=== PATIENT | male | born 1985 | race Caucasian/White ===

== ENCOUNTER → 2018-07-27 | Outpatient (CLI) | payer OTHER ==
--- NOTE | 2018-07-27 18:20 | XR ---
EXAMINATION TYPE: XR ankle complete RT DATE OF EXAM: 07/27/2018 COMPARISON: NONE HISTORY: Pain TECHNIQUE: 3 views FINDINGS: Ankle mortise is anatomic. I see no fracture nor dislocation. Joint spaces are normal. IMPRESSION: Negative right ankle exam.
--- NOTE | 2018-07-27 18:21 | XR ---
EXAMINATION TYPE: XR foot complete RT DATE OF EXAM: 07/27/2018 COMPARISON: NONE HISTORY: Pain TECHNIQUE: 3 views FINDINGS: Metatarsals are intact. I see no fracture nor dislocation. There are no erosions. Joint spa more[place] appear normal. IMPRESSION: Negative right foot exam.
== END ==
LOC: RADXRMAIN 17:26
PROVIDERS: ATTEND Emergency Medicine
DX: S93.401A Sprain of unspecified ligament of right ankle, initial encounter (principal); S93.601A Unspecified sprain of right foot, initial encounter

== ENCOUNTER → 2018-08-08 | Outpatient (CLI) | payer OTHER ==
--- NOTE | 2018-08-08 15:04 | XR ---
EXAMINATION TYPE: XR ankle complete RT, XR foot complete RT DATE OF EXAM: 08/08/2018 CLINICAL HISTORY: Right foot and ankle pain, persistent. Follow-up exam. TECHNIQUE: Frontal, lateral and oblique images of the right ankle and foot are obtained. COMPARISON: 07/27/2018 FINDINGS: There is no acute fracture/dislocation evident in the right ankle nor foot. The ankle mor tise appears within normal limits. The overlying soft tissue appears unremarkable. Osseous mineraliz ation is within normal limits. No focal soft tissue swelling. No radiopaque foreign body. No perioste al reaction or cortical erosion. IMPRESSION: There is no acute fracture or dislocation in the right ankle or foot. Given the persiste nt pain MRI could be performed to evaluate for ligamentous and/or tendinous injury.
== END ==
LOC: RADXRMAIN 13:56
PROVIDERS: ATTEND Emergency Medicine
DX: S93.401D Sprain of unspecified ligament of right ankle, subsequent encounter (principal); S93.601D Unspecified sprain of right foot, subsequent encounter

== ENCOUNTER 2022-03-22 23:24 | Emergency (ER) | payer BC ==
[2022-03-22 23:55] VITALS: RESP 18; TEMP 98
--- NOTE | 2022-03-23 01:30 | ED ---
GI Bleed HPI - General Chief complaint: GI Bleed Stated complaint: Blood in stool, Abdominal Pain Time Seen by Provider: 03/23/22 00:31 Source: patient, RN notes reviewed, old records reviewed Mode of arrival: ambulatory Limitations: no limitations - History of Present Illness Initial comments: This is a 36-year-old male DF for evaluation patient Dese for evaluation of bright red blood per rectum with history of hemorrhoids. Patient has no abdominal pain. No nausea no vomiting. Symptoms occurred prior to arrival 2. But has not happened a few hours. Patient is on blood thinners no prior history of colonoscopy and no prior history of GI bleed MD complaint: blood streaked stool, gross hematochezia -: hour(s) Radiation: none Severity scale (1-10): 2 Quality: painless Consistency: intermittent Improves with: none Worsens with: none Context: history of GI bleed Associated Symptoms: denies other symptoms Treatments Prior to Arrival: none - Related Data Allergies Allergy/AdvReac Type Severity Reaction Status Date / Time No Known Allergies Allergy Verified 03/22/22 23:55 Review of Systems ROS Statement: Those systems with pertinent positive or pertinent negative responses have been documented in the HPI. ROS Other: All systems not noted in ROS Statement are negative. Past Medical History Past Medical History: Hypertension Additional Past Medical History / Comment(s): hemorrhoid History of Any Multi-Drug Resistant Organisms: None Reported Past Surgical History: No Surgical Hx Reported Past Psychological History: No Psychological Hx Reported Smoking Status: Current some day smoker Past Alcohol Use History: Occasional Past Drug Use History: None Reported General Exam Limitations: no limitations General appearance: alert, in no apparent distress Head exam: Present: atraumatic, normocephalic, normal inspection Eye exam: Present: normal appearance, PERRL, EOMI. Absent: scleral icterus, conjunctival injection, periorbital swelling ENT exam: Present: normal exam, mucous membranes moist Neck exam: Present: normal inspection. Absent: tenderness, meningismus, lymphadenopathy Respiratory exam: Present: normal lung sounds bilaterally. Absent: respiratory distress, wheezes, rales, rhonchi, stridor Cardiovascular Exam: Present: regular rate, normal rhythm, normal heart sounds. Absent: systolic murmur, diastolic murmur, rubs, gallop, clicks GI/Abdominal exam: Present: soft, normal bowel sounds. Absent: distended, tenderness, guarding, rebound, rigid Extremities exam: Present: normal inspection, full ROM, normal capillary refill. Absent: tenderness, pedal edema, joint swelling, calf tenderness Back exam: Present: normal inspection Neurological exam: Present: alert, oriented X3, CN II-XII intact Psychiatric exam: Present: normal affect, normal mood Skin exam: Present: warm, dry, intact, normal color. Absent: rash Course Vital Signs 03/22/22 03/23/22 23:51 02:13 Temperature 98.0 F Pulse Rate 90 72 Respiratory 18 Rate Blood Pressure 149/96 146/72 O2 Sat by Pulse 97 98 Oximetry - Reevaluation(s) Reevaluation #1: 03/23/22 01:25 Medical record is reviewed Reevaluation #2: 03/23/22 01:25 Patient informed of results and questions answered Reevaluation #3: 03/23/22 01:25 Patient is no significant complaints, no recurrent symptoms Medical Decision Making - Medical Decision Making 36 male to the emergency department for evaluation. Patient presents today for evaluation regards to bright red blood per rectum. 2. Mild. No current bleeding history of hemorrhoids he will is stable no bleeding here in the ER patient can be discharged home - Lab Data Result diagrams: 03/23/22 01:00 03/23/22 01:00 Lab Results 03/23/22 03/23/22 Range/Units 01:00 01:00 WBC 10.5 (3.8-10.6) k/uL RBC 5.44 (4.30-5.90) m/uL Hgb 15.7 (13.0-17.5) gm/dL Hct 49.4 (39.0-53.0) % MCV 90.9 (80.0-100.0) fL MCH 28.9 (25.0-35.0) pg MCHC 31.8 (31.0-37.0) g/dL RDW 13.1 (11.5-15.5) % Plt Count 366 (150-450) k/uL MPV 8.2 Neutrophils % 58 % Lymphocytes % 32 % Monocytes % 6 % Eosinophils % 3 % Basophils % 1 % Neutrophils # 6.0 (1.3-7.7) k/uL Lymphocytes # 3.3 (1.0-4.8) k/uL Monocytes # 0.6 (0-1.0) k/uL Eosinophils # 0.3 (0-0.7) k/uL Basophils # 0.1 (0-0.2) k/uL Sodium 138 (137-145) mmol/L Potassium 4.2 (3.5-5.1) mmol/L Chloride 101 (98-107) mmol/L Carbon Dioxide 27 (22-30) mmol/L Anion Gap 10 mmol/L BUN 15 (9-20) mg/dL Creatinine 0.82 (0.66-1.25) mg/dL Est GFR (CKD-EPI)AfAm >90 (>60 ml/min/1.73 sqM) Est GFR (CKD-EPI)NonAf >90 (>60 ml/min/1.73 sqM) Glucose 88 (74-99) mg/dL Calcium 9.8 (8.4-10.2) mg/dL Magnesium 2.2 (1.6-2.3) mg/dL Total Bilirubin 0.5 (0.2-1.3) mg/dL AST 47 (17-59) U/L ALT 71 H (4-49) U/L Alkaline Phosphatase 63 (38-126) U/L Total Protein 8.1 (6.3-8.2) g/dL Albumin 5.2 H (3.5-5.0) g/dL Lipase 76 (23-300) U/L Disposition Clinical Impression: Lower gastrointestinal hemorrhage Disposition: HOME SELF-CARE Condition: Good Instructions (If sedation given, give patient instructions): Gastrointestinal Bleeding (ED) Is patient prescribed a controlled substance at d/c from ED?: No Referrals: Paige Batista MD [STAFF PHYSICIAN] - 1-2 days Time of Disposition: 02:00
[2022-03-23 01:46] LABS: Basophils # (A) 0.1 k/uL (0-0.2); Basophils % (A) 1 %; Eosinophils # (A) 0.3 k/uL (0-0.7); Eosinophils % (A) 3 %; HCT 49.4 % (39.0-53.0); HGB 15.7 gm/dL (13.0-17.5); Lymphocytes # (A) 3.3 k/uL (1.0-4.8); Lymphocytes % (A) 32 %; MCH 28.9 pg (25.0-35.0); MCHC 31.8 g/dL (31.0-37.0); MCV 90.9 fL (80.0-100.0); Mean Platelet Volume 8.2; Monocytes # (A) 0.6 k/uL (0-1.0); Monocytes % (A) 6 %; Neutrophils % (A) 58 %; Platelet Count 366 k/uL (150-450); RBC 5.44 m/uL (4.30-5.90); RDW 13.1 % (11.5-15.5); WBC 10.5 k/uL (3.8-10.6)
[2022-03-23 01:52] LABS: ALT 71 U/L (4-49); AST 47 U/L (17-59); African American GFR (CKD) >90 (>60 ml/min/1.73 sqM); Albumin 5.2 g/dL (3.5-5.0); Alkaline Phosphatase 63 U/L (38-126); Anion Gap 10 mmol/L; Blood Urea Nitrogen 15 mg/dL (9-20); Calcium 9.8 mg/dL (8.4-10.2); Carbon Dioxide 27 mmol/L (22-30); Chloride 101 mmol/L (98-107); Glucose 88 mg/dL (74-99); Lipase 76 U/L (23-300); Magnesium 2.2 mg/dL (1.6-2.3); Non-African American GFR(CKD) >90 (>60 ml/min/1.73 sqM); Potassium 4.2 mmol/L (3.5-5.1); Sodium 138 mmol/L (137-145); Total Bilirubin 0.5 mg/dL (0.2-1.3); Total Protein 8.1 g/dL (6.3-8.2)
[2022-03-23 02:15] VITALS: BP 146/72; PULSE 72
== END 2022-03-23 02:14 | disposition home or self-care (01) ==
LOC: EC 23:24
DX: K92.1 Melena (principal); I10 Essential (primary) hypertension; F17.200 Nicotine dependence, unspecified, uncomplicated
CPT/HCPCS: 36415; 80053; 83690; 83735; 85025; 99284

== ENCOUNTER → 2023-11-29 | Outpatient (CLI) | payer BC ==
--- NOTE | 2023-11-30 09:29 | XR ---
EXAMINATION TYPE: XR ankle limited LT DATE OF EXAM: 11/29/2023 2:01 PM CLINICAL INDICATION:Male, 38 years old with history of PAIN; PHH. Patient reports pain no known inju ry. COMPARISON: None TECHNIQUE: The left foot and left ankle are imaged in frontal and lateral projections. 4 images total . FINDINGS: Exam limited with only 2 views obtained. Osseous mineralization appears appropriate. Mild cortical irregularities of the distal 2-4 metatarsal s in the region of the head/neck junctions, may be sequela of nonacute fracture without significant d isplacement seen. No definite acute fracture lucency or dislocation. Mild degenerative changes. Align ment at the tarsometatarsal joints appears preserved. Minimal plantar and dorsal calcaneal spurring. No evidence of ankle fracture or dislocation. Ankle mortise is preserved. Talus appears intact. No si gnificant joint effusion is seen. Unremarkable soft tissues. No radiopaque foreign body is seen. IMPRESSION: Left ankle and foot: 1. No evidence of acute fracture or dislocation of the ankle. 2. Mild cortical irregularities of the distal 2-4 metatarsals in the region of the head/neck junctio ns, may be sequela of nonacute fracture without significant displacement seen.
--- NOTE | 2023-11-30 09:30 | XR ---
EXAMINATION TYPE: XR foot limited LT DATE OF EXAM: 11/29/2023 2:01 PM CLINICAL INDICATION:Male, 38 years old with history of PAIN; PHH COMPARISON: None. TECHNIQUE: The left foot and left ankle are imaged in frontal and lateral projections. 4 images total . FINDINGS: Exam limited with only 2 views obtained. Osseous mineralization appears appropriate. Mild cortical irregularities of the distal 2-4 metatarsal s in the region of the head/neck junctions, may be sequela of nonacute fracture without significant d isplacement seen. No definite acute fracture lucency or dislocation. Mild degenerative changes. Align ment at the tarsometatarsal joints appears preserved. Minimal plantar and dorsal calcaneal spurring. No evidence of ankle fracture or dislocation. Ankle mortise is preserved. Talus appears intact. No si gnificant joint effusion is seen. Unremarkable soft tissues. No radiopaque foreign body is seen. IMPRESSION: Left ankle and foot: 1. No evidence of acute fracture or dislocation of the ankle. 2. Mild cortical irregularities of the distal 2-4 metatarsals in the region of the head/neck junctio ns, may be sequela of nonacute fracture without significant displacement seen.
--- NOTE | 2023-11-30 09:33 | XR ---
EXAMINATION TYPE: XR lumbosacral spine min 4V DATE OF EXAM: 11/29/2023 2:01 PM CLINICAL INDICATION:Male, 38 years old with history of PAIN; PHH COMPARISON: None TECHNIQUE: XR lumbosacral spine 5 views- Frontal, bilateral oblique, lateral and coned down L5-S1 lat eral views of the lumbar spine. FINDINGS: There are 5 non rib bearing lumbar-type vertebral bodies. L5 may be partially sacralized. Mineralizat ion appears within normal limits. No osseous destructive process seen. Vertebral body heights and dis c spacing are preserved. Pedicles look to be intact. There is normal alignment of the lumbar vertebra l bodies. No significant degenerative changes throughout the spine. Soft tissues are unremarkable. If clinical concern persists, CT or MRI may be obtained as indicated for further evaluation. IMPRESSION: No radiographic evidence of an acute osseous abnormality.
== END | disposition home or self-care (01) ==
LOC: RADXRMAIN 13:26
PROVIDERS: ATTEND Family Medicine
DX: M25.572 Pain in left ankle and joints of left foot (principal)
CPT/HCPCS: 72110

== ENCOUNTER → 2024-01-26 | Outpatient (CLI) | payer BC ==
[2024-01-26 11:25] VITALS: BP 151/84; PULSE 78; RESP 16; TEMP 98.3
--- NOTE | 2024-01-26 11:55 | P.SLEEP ---
History of Present Illness DATE: 01/26/2024 CONSULTATION/NEW PATIENT EVALUATION HISTORY OF PRESENT ILLNESS/SLEEP-WAKE EVALUATION: 38-year-old gentleman had b een evaluated in the sleep center for possible obstructive sleep apnea hypopnea syndrome. SLEEP SCHEDULE: Usually sleep schedule from 8:45 AM to 2:45 PM on weekdays and from 11 PM to 7:45 AM on weekend. 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 FALLING ASLEEP: No problems with falling asleep. DURING SLEEP: Patient has loud snoring, witnessed episodes of stop breathing during the sleep. Patient wakes up from sleep 3 times with nocturia, episodes of gasping for air, restless leg symptoms, sweating, choking. Positive history of sleep talking and possibly sleepwalking. No history of hypnogogical halluc inations, sleep paralysis, or cataplexy. DURING THE DAY/WAKE STATE: In the morning patient wake up tired, falling asleep during the day, has problems with memory concentration and irritability.. Epw orth sleepiness scale is an extremely high range of 17. Patient may take 1 nap during the day. He drinks up to 6 cups of caffeinated beverages during the day. PAST MEDICAL HISTORY: Hypertension. PAST SURGICAL HISTORY: None. MEDICATIONS: Amlodipine 2.5 mg once a day. SOCIAL HISTORY: Negative for smoking, alcohol consumption occasional. FAMILY HISTORY: Heart problems, hypertension, snoring, pneumonia. REVIEW OF SYSTEMS: Snoring, multiple awakenings from sleep, significant sleepiness. No fevers. No double vision. No recent chest pain. No shortness of breath. No abdominal pain. No bleeding episodes. No blood in urine. No seizure episodes. PHYSICAL EXAMINATION: GENERAL: A pleasant patient without any distress. VITAL SIGNS: Please see below, weight 275 pounds, BMI 37.2. HEENT: PERRLA, EOMI. Evaluation of oropharynx showed tongue protrudes midline, low position of soft palate Mallampati 3. NECK: Supple. No JVD. Thyroid is not palpable. 18 inches in circumference. LUNGS: Clear to percussion and to auscultation. Good air exchange. No wheezing or rhonchi. HEART: S1, S2 regular. No murmurs, gallops or rubs. ABDOMEN: Soft and nontender. Bowel sounds are present. No organomegaly appreciated. EXTREMITIES: No clubbing or cyanosis. ROOF BOLTER: Awake, alert, and oriented x3. Cranial nerves 2 to 7 intact. There is no fasciculation or atrophy noted. No focal deficits observed. ASSESSMENT: 1. Loud snoring, witnessed episodes of stop breathing during the sleep, low position of soft palate Mallampati 3, wide neck 18 inches in circumference, sleepiness with high level of her Cuthbert Sleepiness Scale. Obstructive sleep apnea hypopnea syndrome. 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 3. Sleepiness with very high Cuthbert Sleepiness Scale of 17, dictate necessity to include hypersomnia differential diagnosis. 4. Obesity BMI 37.2. 5 hypertension. PLAN: 1. Home sleep apnea test for evaluation of patient's breathing during sleep. 2. Following plan after reading sleep study. 3. Preferable position during sleep on the side. 4. No driving if patient feels any sleepiness. Patient is aware of civil and criminal liability for unsafe driving. 5. Sleep hygiene with regular sleep time for at least 7.5-8 hours. 6. Watching and losing weight. Thank you very much for referring this patient for consultation. Sincerely, Papi Montiel MD, PhD, FAASM. Diplomat of [place] [employer], Sleep Medicine Board by [place] [employer] [place] [employer] Director Organizational of [facility] [place] Past Medical History Past Medical History: Hypertension Additional Past Medical History / Comment(s): hemorrhoid History of Any Multi-Drug Resistant Organisms: None Reported Past Surgical History: No Surgical Hx Reported Past Anesthesia/Blood Transfusion Reactions: No Reported Reaction Past Psychological History: No Psychological Hx Reported Smoking Status: Current some day smoker Past Alcohol Use History: Occasional Past Drug Use History: None Reported - Past Family History Mother Family Medical History: Coronary Artery Disease (CAD) Father Family Medical History: Liver Disease Additional Family Medical History / Comment(s): from cirrosis Medications and Allergies Home Medications Medication Instructions Recorded Confirmed Type amLODIPine [Norvasc] 2.5 mg PO DAILY 01/26/24 01/26/24 History Allergies Allergy/AdvReac Type Severity Reaction Status Date / Time No Known Allergies Allergy Verified 03/22/22 23:55 Physical Exam Vitals: Vital Signs Temp Pulse Resp BP Pulse Ox 01/26/24 11:00 98.3 F 78 16 151/84 96 Intake and Output 01/25/24 01/26/24 01/26/24 22:59 06:59 14:59 Other: Weight 124.738 kg Sleep Note - Sleep Data ESS Total: 17 - Sleep Note Sleep Note: Temperature: 98.3 F Pulse Rate: 78 Respiratory Rate: 16 Blood Pressure: 151/84 SpO2: 96 Height: 6 ft Weight: 124.738 kg BMI: Neck Circumference: 18
== END ==
LOC: 3 N SLEEP 10:31
PROVIDERS: ATTEND Internal Medicine
DX: G47.33 Obstructive sleep apnea (adult) (pediatric) (principal); G47.10 Hypersomnia, unspecified; E66.9 Obesity, unspecified; I10 Essential (primary) hypertension; F17.200 Nicotine dependence, unspecified, uncomplicated; Z68.37 Body mass index [BMI] 37.0-37.9, adult; Z79.899 Other long term (current) drug therapy
CPT/HCPCS: 99211

== ENCOUNTER → 2024-02-10 | Outpatient (CLI) | payer BC ==
--- NOTE | 2024-02-16 13:23 | P.PCN ---
Description of Procedure: CLINICAL: A home sleep apnea test has been done for confirmation of possible obstructive sleep apnea-hypopnea syndrome. DESCRIPTION OF PROCEDURE: RESULTS: Recording time was 7 hours . 31 minutes. Evaluation time was 7 hours 19 minutes. Evaluation time is sufficient for making conclusion about results of the test. Raw data of sleep recording has been reviewed and is adequate. Respiratory channel showed 38 apneas and 182 hypopneas. Apnea-hypopnea index was 30.0 per hour. Pulse rate in the range between minimum 40, maximum 115, average 61 by computer calculation. Lowest desaturation was 83%. IMPRESSION: 1. Severe Obstructive Sleep Apnea Hypopnea Syndrome. Please see other impressions from consultation. PLAN: 1. The patient will be started on auto-PAP treatment for correction of respiratory abnormallities during sleep. 2. I will see patient for follow up visit to discuss results of the test, evaluate clinical response on treatment with PAP therapy and make any necessary adjustments related to mask fitting, pressure, and humidification. 3. Watching and losing weight. 4. Sleep hygiene with regular time in bed for at least 8 hours. 5. No driving if feeling any sleepiness. Thank you very much for allowing me to participate in the management of your patient. Sincerely, Papi Montiel MD, PhD, FAASM Diplomat of [place] [employer] Sleep Medicine Board of [place] [employer] Healthcare Liaison of [facility] [place]
== END ==
LOC: 3 N SLEEP 10:42
PROVIDERS: ATTEND Internal Medicine
DX: G47.33 Obstructive sleep apnea (adult) (pediatric) (principal)

== ENCOUNTER → 2024-06-28 | Outpatient (CLI) | payer BC ==
[2024-06-28 15:34] VITALS: BP 138/82; PULSE 90; RESP 16; TEMP 97.6
--- NOTE | 2024-06-28 16:11 | P.PROGSL ---
Subjective DATE: [] FOLLOW UP VISIT. Patient with obstructive sleep apnea hypopnea syndrome return to sleep center for follow-up visit. Recently patient had sleep study which documented obstructive sleep apnea hypopnea syndrome. I explained results of the sleep study to patient in details. Patient was initiated on PAP therapy and today is first visit after treatment was started. Patient was able to use PAP equipment every night for the whole night. Patient feels better during the sleep and during the day after starting treatment with CPAP. The patient does not have significant problems with the mask, PAP pressure and humidification. [place] sleepiness scale is 8, which is in normal range. I checked information from PAP unit. PAP unit pressure 6-18, average 12.5 cm H2O. Usage is 100% and 70% for more then 4 hours, average 5 hours per night. Leak is increased to 31.0 l/m. Apnea Hypopnea Index is 2.1, which is normal. MEDICATIONS: Please see below During physical exam: GENERAL: A pleasant patient without any distress. VITAL SIGNS: Please see below, weight 265 pounds. HEENT: PERRLA, EOMI.low position of soft palate, Mallapati 3 . NECK: Supple. No JVD. LUNGS: Clear to percussion and to auscultation. Good air exchange. No wheezing or rhonchi. HEART: S1, S2 regular. ABDOMEN: Soft and nontender. Obese EXTREMITIES: No clubbing or cyanosis. VENEER PRESS OPERATOR: Awake, alert, and oriented x3. No focal deficit. Impressions: 1. Obstructive sleep apnea-hypopnea syndrome. Patient demonstrated great compliance with treatment, benefiting from treatment. 2. Obesity. 3. Hypertension. 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 Plan: 1. Continue using PAP equipment every night for the whole night. 2. To change air filter at least 1-2 times per month. 3. PAP unit should stay lower then position of the head. 4. Advised patient to remove all remaining water from humidifier canister daily and make it dry after each usage. Refill canister with fresh distilled water before each usage. 5. Sleep hygiene with regular time in bed for at least 8 hours. 6. Precautions related to driving. No driving if feel any sleepiness. 7. I will maintain prescription for PAP supplies including mask, tube, filters. 8. Follow up visit in 6 months or earlier if patient has any problems. 9. Watching and losing weight. Thank you very much for allowing me to participate in the management of your patient. Papi Montiel MD, PhD, FAASM. Diplomat of [place] [employer], Sleep Medicine Board by [place] [employer] Veterinary Pharmacologist of [facility] [place] Objective - Vital Signs Vital Signs: Vital Signs Temp 97.6 F 06/28/24 15:32 Pulse 90 06/28/24 15:32 Resp 16 06/28/24 15:32 BP 138/82 06/28/24 15:32 Pulse Ox 97 06/28/24 15:32 FiO2 Home Medications: Home Medications Medication Instructions Recorded Confirmed Type amLODIPine [Norvasc] 2.5 mg PO DAILY 01/26/24 01/26/24 History
== END ==
LOC: 3 N SLEEP 15:17
PROVIDERS: ATTEND Internal Medicine
CPT/HCPCS: 99212

== ENCOUNTER → 2024-12-24 | Outpatient (CLI) | payer BC ==
[2024-12-24 17:16] LABS: Chol/HDL Ratio 4.11 Ratio; LDL Cholesterol,Calculated 113.5 mg/dL (0.0-131.0); Magnesium 2.1 mg/dL (1.5-2.4); Phosphorus 3.6 mg/dL (2.4-5.1); T4, Free (Free Thyroxine) 0.99 ng/dL (0.80-1.80)
[2024-12-24 17:19] LABS: Follicle Stimulating Hormone 20.5 mIU/mL; Luteinizing Hormone 10.1 mIU/mL
== END | disposition home or self-care (01) ==
LOC: LABWHC1 08:34
PROVIDERS: ATTEND Internal Medicine Endocrinology, Diabetes & Metabolism
DX: M81.0 Age-related osteoporosis without current pathological fracture (principal)
CPT/HCPCS: 36415; 80061; 82306; 82523; 83001; 83002; 83036; 83735; 83970; 84100; 84146; 84402; 84403; 84439; 84443; 84480

== ENCOUNTER → 2025-02-07 | Outpatient (CLI) | payer BC ==
[2025-02-07 20:29] LABS: Protein, Total 7.7 g/dL (6.2-8.2)
== END | disposition home or self-care (01) ==
LOC: LABWHC1 12:19
PROVIDERS: ATTEND Psychiatry & Neurology Neurology
DX: R53.1 Weakness (principal); R26.0 Ataxic gait; R42 Dizziness and giddiness
CPT/HCPCS: 36415; 82607; 83036; 84165; 85652; 86038; 86334

== ENCOUNTER → 2025-02-07 | Outpatient (CLI) | payer BC ==
[2025-02-07 13:23] VITALS: BP 144/90; PULSE 84; RESP 16; TEMP 98.3
--- NOTE | 2025-02-07 13:39 | P.PROGSL ---
Subjective DATE: 02/07/2025 FOLLOW UP VISIT. Patient with obstructive sleep apnea hypopnea syndrome return to sleep center for follow-up visit. Information from previous visit have been reviewed. Patient is using PAP equipment every night for the whole night, getting PAP supplies in time. The patient does not have significant problems with the mask, PAP unit and humidification. [place] sleepiness scale is 7. I checked information from PAP unit. PAP unit pressure 5-18, average 12.2 cm H2O. Usage is 95% for more then 4 hours, average 5.8 hours per night. Leak is 29 l/m, which is in acceptable range. Apnea Hypopnea Index is 3.0, which is normal. MEDICATIONS have been reviewed, please see below. During physical exam: GENERAL: A pleasant patient without any distress. VITAL SIGNS: Please see below, weight is 295 lbs. HEENT: PERRLA, EOMI.low position of soft palate, Mallapati 3. NECK: Supple. No JVD. LUNGS: Clear to percussion and to auscultation. Good air exchange. No wheezing or rhonchi. HEART: S1, S2 regular. ABDOMEN: Soft and nontender.[] EXTREMITIES: No clubbing or cyanosis. INTERLACER: Awake, alert, and oriented x3. No focal deficit. Impressions: 1. Obstructive sleep apnea-hypopnea syndrome. Patient demonstrated great compliance with treatment, benefiting from treatment. 2. Obesity, BMI 40.0, patient increased weight on 30 pounds comparing with the previous visit. 3. Status post recent left leg fracture. 4. Hypertension. 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 Plan: 1. Continue using PAP equipment every night for the whole night. 2. Sleep hygiene with regular time in bed for at least 7.5-8 hours 3. PAP unit should stay lower then position of the head. 4. Advised patient to remove all remaining water from humidifier canister daily and make it dry after each usage. Refill canister with fresh distilled water before each usage. 5. Watching and losing weight. 6. Precautions related to driving. No driving if feel any sleepiness. 7. I will maintain prescription for PAP supplies including mask, tube, filters. 8. Follow up visit in 8 months or earlier if patient has any problems. Thank you very much for allowing me to participate in the management of your patient. Papi Montiel MD, PhD, FAASM. Diplomat of [place] [employer], Sleep Medicine Board by [place] [employer] Boat Master of [facility] [place] Objective - Vital Signs Vital Signs: Vital Signs Temp 98.3 F 02/07/25 13:23 Pulse 84 02/07/25 13:23 Resp 16 02/07/25 13:23 BP 144/90 02/07/25 13:23 Pulse Ox 98 02/07/25 13:23 FiO2 Intake & Output 02/06/25 02/07/25 02/07/25 18:59 06:59 18:59 Weight 133.81 kg Home Medications: Home Medications Medication Instructions Recorded Confirmed Type amLODIPine [Norvasc] 2.5 mg PO DAILY 01/26/24 02/07/25 History Ascorbic Acid [Vitamin C] 1,000 mg PO DAILY 02/07/25 02/07/25 History Ergocalciferol [Vitamin D2 (1250 1,250 mcg PO WEEKLY 02/07/25 02/07/25 History Mcg = [id number] Iu)] Montelukast [Singulair] 10 mg PO DAILY 02/07/25 02/07/25 History
== END ==
LOC: 3 N SLEEP 13:01
PROVIDERS: ATTEND Internal Medicine
DX: G47.33 Obstructive sleep apnea (adult) (pediatric) (principal); I10 Essential (primary) hypertension; S82.92XA Unspecified fracture of left lower leg, initial encounter for closed fracture; E66.9 Obesity, unspecified; Z68.41 Body mass index [BMI] 40.0-44.9, adult; Z99.89 Dependence on other enabling machines and devices; X58.XXXA Exposure to other specified factors, initial encounter
CPT/HCPCS: 99212

== ENCOUNTER → 2025-04-11 | Outpatient (CLI) | payer BC ==
[2025-04-11 12:15] LABS: Anion Gap 13.10 mmol/L (4.00-12.00); BUN/Creat Ratio 31.17 Ratio (12.00-20.00); Blood Urea Nitrogen 18.7 mg/dL (9.0-27.0); Carbon Dioxide 23.9 mmol/L (21.6-31.8); Chloride 105 mmol/L (96-109); Cholesterol 184.00 mg/dL (0.00-200.00); Glucose 99 mg/dL (70-110); HDL Cholesterol 39.50 mg/dL (40.00-60.00); LDL Cholesterol,Calculated 109.3 mg/dL (0.0-131.0); Magnesium 2.1 mg/dL (1.5-2.4); Potassium 4.5 mmol/L (3.5-5.5); Sodium 142 mmol/L (135-145); Triglycerides 176.00 mg/dL (0.00-149.00); VLDL Calculation 35.20 mg/dL (5.00-40.00)
[2025-04-11 12:16] LABS: ALT 50 U/L (10-49); AST 34 U/L (14-35); Albumin 4.6 g/dL (3.8-4.9); Albumin/Globulin Ratio 2.00 Ratio (1.60-3.17); Alkaline Phosphatase 78 U/L (41-126); Calcium 9.6 mg/dL (8.7-10.3); Globulin 2.3 g/dL (1.6-3.3); T4, Free (Free Thyroxine) 1.16 ng/dL (0.80-1.80); Total Protein 6.9 g/dL (6.2-8.2)
[2025-04-11 13:48] LABS: Follicle Stimulating Hormone 18.6 mIU/mL
[2025-04-12 00:31] LABS: ACTH 43.1 pg/mL (0.00-45.99)
== END | disposition home or self-care (01) ==
LOC: LABWHC1 08:19
PROVIDERS: ATTEND Internal Medicine Endocrinology, Diabetes & Metabolism
DX: Z13.820 Encounter for screening for osteoporosis (principal)
CPT/HCPCS: 36415; 80053; 80061; 82024; 82306; 82523; 82533; 83001; 83002; 83036; 83735; 83970; 84146; 84305; 84402; 84403; 84439; 84443; 84480